=== PATIENT | female | born 1970 | race Caucasian/White ===

== ENCOUNTER 2016-07-19 17:48 | Emergency (ER) | payer OTHER ==
[~2016-07-19] VITALS: Ht 157.5 cm; Wt 90.0 kg
[~2016-07-19 17:48] MED LIST: ALPR2TAB PO; HYDR-902 PO; TOPI100T42 PO
[2016-07-19] MEDS ORDERED: LORAZEPAM 2 MG INJ IV STA (17:54)
[2016-07-19] MEDS ORDERED: SOD CHLORIDE 0.9% 1,000 ML IV STA (17:54)
[2016-07-19 18:00] VITALS: Ht 157.5 cm; Wt 90.0 kg
[2016-07-19 18:37] LABS: HEMATOCRIT 42.4 % (37.0-47.0); HEMOGLOBIN 14.1 g/dl (12.0-16.0); MEAN CORPUSCULAR HEMOGLOBIN 31.8 pg (29.0-33.0); MEAN CORPUSCULAR HGB CONC 33.3 g/dl (32.0-37.0); MEAN CORPUSCULAR VOLUME 95.8 fl (82.0-101.0); MEAN PLATELET VOLUME 7.9 fl (7.4-10.4); PLATELET COUNT 491 10^3/UL (140-440); RED BLOOD COUNT 4.43 10^6/ul (4.20-5.40); RED CELL DISTRIBUTION WIDTH 16.1 % (11.5-14.5); UNCORRECTED WBC 11.2 10^3/ul (4.8-10.8); WHITE BLOOD COUNT 11.2 10^3/ul (4.8-10.8)
[2016-07-19 18:38] LABS: CONDITION 1; LH ANALYZER COMMENTS 1
[2016-07-19 18:44] LABS: CREATININE 0.57 mg/dl (0.44-1.00)
[2016-07-19 18:45] LABS: CALCIUM 9.5 mg/dl (8.4-10.2)
--- NOTE | 2016-07-19 19:01 | RADRPT ---
PROCEDURE: CT Head without. CLINICAL INDICATION: Seizure. TECHNIQUE: The study was performed utilizing a multi-slice, multidetector CT scanner. Direct spira l 1 mm axial sections were obtained through the head without the use of intravenous contrast materia l. Coronal and sagittal reformations were obtained. The images were reviewed on a PACS workstation. RADIATION DOSE: CTDIvol: 43.2 mGyDLP: 720.2 mGy-cm COMPARISON: No prior studies are available for comparison. FINDINGS: There is no intracranial hemorrhage, extra-axial fluid collection, mass lesion, midline shift or hyd rocephalus. The ventricles, sulci and cisterns are within normal limits. The white matter is unrem arkable. The pérez-white matter differentiation is preserved. The basal cisterns are patent. The m idline structures are intact. The orbits, calvarium and extracranial soft tissues are normal in lee earance. The visualized paranasal sinuses, mastoid air cells and middle ear cavities are normally ae rated. IMPRESSION: 1. No acute intracranial abnormality. No intracranial hemorrhage, extra-axial fluid collection, ma ss lesion or hydrocephalous. RPTAT: DD .Vishal Santillan MD, MD Date Time Electronically viewed and signed by .Vishal Santillan MD, on 07/19/2016 19:00 .S/
[2016-07-19] MEDS ORDERED: LISI10TA2 PO (19:30)
[2016-07-19 19:36] LABS: BASOPHIL # 0.3 10^3/ul (0.0-0.1); EOSINOPHILS # 0.1 10^3/ul (0.0-0.5); LYMPHOCYTES # 3.6 10^3/ul (0.8-2.9); MONOCYTE # 0.8 10^3/ul (0.3-0.9); NEUTROPHIL # 6.4 10^3/ul (1.6-7.5)
[2016-07-19 19:38] LABS: ANISOCYTOSIS 1+; PLATELET ESTIMATE PLT APPEAR INCREASED
--- NOTE | 2016-07-19 20:32 | ERD ---
ER Documentation Chief Complaint Date/Time DATE: 07/19/16 TIME: 20:30 Chief Complaint had a 2 min tonic clonic seizure hx of sz fell on face HPI Patient is a 46-year-old female with diabetes and seizure presents with a seizure. She was brought in by ambulance. She has been under a lot of stress and she did not sleep well last night. She has a history of seizures and had a seizure today per the son. She fell to the floor and has bleeding above her left eye. The seizure was tonic-clonic and lasted 1 minute and 50 seconds per the son and stopped on its own. The patient was on Topamax before for seizures but stopped this 5 months ago when her . ROS All systems reviewed and are negative except as per history of present illness. Medications Home Meds Reported Medications Lisinopril* (Lisinopril*) 10 Mg Tablet, 10 MG PO BID, #30 TAB 07/19/16 Hydrocodone/Acetaminophen (Conrad 10-325 Tablet) 1 Each Tablet, 1 EACH PO BID Y for PRN, TAB 03/31/16 Discontinued Reported Medications Alprazolam* (Xanax*) 2 Mg Tablet, 2 MG PO BID Y for ANXIETY, TAB 03/31/16 Discontinued Scripts Topiramate* (Topamax*) 100 Mg Tablet, 100 MG PO BID, #60 TAB Prov:MARIA ALEJANDRA BIRMINGHAM MD 03/31/16 Allergies Allergies: Coded Allergies: prochlorperazine (Verified Allergy, Unknown, "FACE WENT TO ONE SIDE, THIGHTNESS", 07/19/16) PMhx/Soc History of Surgery: No (colon sx for diverticulitis ) Anesthesia Reaction: No Hx Neurological Disorder: No (seizure disorder) Hx Respiratory Disorders: No Hx Cardiac Disorders: No (htn ) Hx Psychiatric Problems: No Hx Miscellaneous Medical Probl: Yes (seizure) Hx Alcohol Use: No Hx Substance Use: No Hx Tobacco Use: Yes Smoking Status: Current some day smoker FmHx Family History: diabetes Physical Exam Vitals Vital Signs Date Time Temp Pulse Resp B/P Pulse Ox O2 Delivery O2 Flow Rate FiO2 07/19/16 18:00 98.0 88 18 143/72 98 Physical Exam Const: No acute distress Head: Small laceration above the right eye with blood on her face Eyes: Normal Conjunctiva ENT: Normal External Ears, Nose and Mouth. Neck: Full range of motion..~ No meningismus. Resp: Clear to auscultation bilaterally Cardio: Regular rate and rhythm, no murmurs Abd: Soft, non tender, non distended. Normal bowel sounds Skin: 0.5 cm laceration above the right eye Back: No midline or flank tenderness Ext: No cyanosis, or edema Neur: Awake and alert Psych: Normal Mood and Affect Result Diagram: 07/19/16 1800 07/19/16 1800 Results 24 hrs Laboratory Tests Test 07/19/16 18:00 07/19/16 18:02 Anion Gap 20 Anisocytosis 1+ Basophils # 0.310^3/ul Basophils % 3.0% Blood Morphology Comment Blood Urea Nitrogen 10mg/dl Calcium Level 9.5mg/dl Carbon Dioxide Level 22mmol/L Chloride Level 103mmol/L Creatinine 0.57mg/dl Eosinophils # 0.110^3/ul Eosinophils % 1.0% Glucose Level 115mg/dl Hematocrit 42.4% Hemoglobin 14.1g/dl Lymphocytes # 3.610^3/ul Lymphocytes % 32.0% Macrocytosis OCCASIONAL Mean Corpuscular Hemoglobin 31.8pg Mean Corpuscular Hemoglobin Concent 33.3g/dl Mean Corpuscular Volume 95.8fl Mean Platelet Volume 7.9fl Monocytes # 0.810^3/ul Monocytes % 7.0% Neutrophils # 6.410^3/ul Neutrophils % 57.0% Platelet Count 11876^3/UL Platelet Estimate PLT APPEAR INCREASED Potassium Level 4.0mmol/L Red Blood Count 4.4310^6/ul Red Cell Distribution Width 16.1% Sodium Level 141mmol/L White Blood Count 11.210^3/ul Bedside Glucose 114mg/dL Current Medications Medications (Trade) Dose Ordered Sig/Nicolás Route PRN Reason Start Time Stop Time Status Last Admin Dose Admin Sodium Chloride (NS) 1,000 ml @ 1,000 mls/hr Q1H STAT IV 07/19/16 17:54 07/19/16 18:53 DC 07/19/16 18:07 Lorazepam (Ativan) 1 mg ONCE STAT IV 07/19/16 17:54 07/19/16 17:55 DC 07/19/16 18:07 Procedures/MDM CT head negative for fracture or intracranial hemorrhage. Laceration Repair by me: Anesthesia: None required Location: Above right eye Tendon/Joint/Nerves: No injury Foreign body: None detected after copious irrigation and exploration Technique: Dermabond Complexity: No subcutaneous sutures/mucosal repair/ edge excision Post Closure Length: 0.5 cm Patient's bleeding was easily controlled in the department and there is no indication of anemia. No evidence of compartment syndrome, neurologic injury, vascular injury, open joint, tendon laceration, or foreign body. Patient is appropriate for outpatient follow up. 48 hour wound check. Scar minimization instructions given. Smoking Cessation Therapy: Pt. was lectured for greater than 3 minutes on the health risks of continued smoking and the benefits of cessation. Patient is a 46-year-old female presents with acute on chronic seizure. The patient had a small laceration which was closed with Dermabond. The patient has basically normal laboratory studies. CT scan shows no intracranial hemorrhage. At this point I believe outpatient management is appropriate. Patient will need to follow-up with her primary doctor within 48 hours for a wound check. The patient can return sooner for any worsening symptoms. I do believe that she may benefit from being on chronic antiseizure medicines but this will need to be discussed with her doctor. Departure Diagnosis: Primary Impression: Laceration Additional Impression: Seizure Condition: Fair Patient Instructions: Laceration, All, Seizure, Recurrent [Adult] Referrals: Your doctor Additional Instructions: Call your primary care doctor TOMORROW for an appointment during the next 1-2 days.See the doctor sooner or return here if your condition worsens before your appointment time. TRISHA BROOKS MD Jul 19, 2016 20:32
[2016-07-19 20:40] VITALS: BP 140/70; PULSE 87; RESP 18; TEMP 98
== END 2016-07-19 20:40 | disposition home or self-care (01) ==
LOC: E/R 17:48
DX: S05.31XA Ocular laceration without prolapse or loss of intraocular tissue, right eye, initial encounter (principal); R40.2252 Coma scale, best verbal response, oriented, at arrival to emergency department; G40.909 Epilepsy, unspecified, not intractable, without status epilepticus; I10 Essential (primary) hypertension; F17.210 Nicotine dependence, cigarettes, uncomplicated; R40.2362 Coma scale, best motor response, obeys commands, at arrival to emergency department; R40.2142 Coma scale, eyes open, spontaneous, at arrival to emergency department; W18.39XA Other fall on same level, initial encounter; Y92.9 Unspecified place or not applicable
CPT/HCPCS: 12011; 36415; 70450; 80048; 82962; 85025; 96374; J2060; J7030; Z7502